=== PATIENT | male | born 1955 | race Two or more races ===

== ENCOUNTER 2022-08-18 10:57 | Inpatient (IN) | payer OTHER, MEDICAID ==
[~2022-08-18] VITALS: Ht 182.9 cm; Wt 80.0 kg
[2022-08-18 12:04] LABS: Basophils # (auto) 0 10 ^3/uL (0-0.2); Basophils % (auto) 0.4 % (0.0-2.0); Eosinophils # (auto) 0.2 10 ^3/uL (0-0.8); Eosinophils % (auto) 1.9 % (0.0-7.0); Hemoglobin 13.3 g/dL (13.5-17.5); Lymphocytes # (auto) 0.9 10 ^3/uL (0.4-5.4); Lymphocytes % (auto) 9.1 % (10.0-50.0); Mean Corpuscular Hemoglobin 32.4 pg (28.0-32.0); Mean Corpuscular Hgb Conc. 33.3 g/dL (32.0-36.0); Mean Corpuscular Volume 97.3 fL (80.0-100.0); Monocytes # (auto) 0.8 10 ^3/uL (0-1.3); Monocytes % (auto) 8.8 % (0.0-12.0); Neutrophils # (auto) 7.5 10 ^3/uL (1.6-8.6); Neutrophils % (auto) 79.8 % (37.0-80.0); Nucleated Red Blood Cells % 0.2 %; Red Blood Cells 4.11 10^6/uL (4.5-5.90); Red Cell Distribution Width 18.9 % (11.8-14.3); White Blood Cell 9.4 10^3/uL (4.4-10.8)
[2022-08-18 12:13] LABS: Albumin 4.1 g/dL (3.4-5.0); Calcium 9.6 mg/dL (8.5-10.1); INR 1.51 (0.9-1.15); Magnesium 2.6 mg/dL (1.6-2.6); Partial Thromboplastin Time 26.3 sec (24.6-33.4); Potassium 4.3 mmol/L (3.5-5.1)
[2022-08-18 12:17] LABS: BUN/Creatinine Ratio 49.6 (10.0-20.0); Bilirubin, Total 1.7 mg/dL (0.2-1.0); Total Protein 7.4 g/dL (6.4-8.2)
[2022-08-18] MEDS ORDERED: methylPREDNISolone SOD SUCC 125 MG/2 ML VL IV ONE (15:45)
[2022-08-18] MEDS ORDERED: IPRATROPIUM BROM 0.5 MG/2.5ML INH SOL NEB PRN (15:45)
[2022-08-18] MEDS ORDERED: ALBUTEROL SULF 2.5 MG/0.5ML(0.5%) NEB SOLN NEB PRN (15:45)
[2022-08-18 19:32] VITALS: BP 100/64
[2022-08-18] MEDS ORDERED: ATORVASTATIN 20 MG TAB PO SCH (22:00)
[2022-08-18] MEDS: methylPREDNISolone SOD SUCC 125 MG/2 ML VL IV SCH (22:18)
[2022-08-18] MEDS: BUMETANIDE 2.5mg/10ml (0.25 mg/ml) INJ IV SCH (22:19)
[2022-08-18] MEDS: ATORVASTATIN 20 MG TAB PO SCH (22:19)
[2022-08-19 05:43] LABS: Basophils # (auto) 0 10 ^3/uL (0-0.2); Eosinophils # (auto) 0 10 ^3/uL (0-0.8); Eosinophils % (auto) 0.3 % (0.0-7.0); Hematocrit 39.9 % (41.0-53.0); Hemoglobin 13.3 g/dL (13.5-17.5); Lymphocytes # (auto) 0.3 10 ^3/uL (0.4-5.4); Lymphocytes % (auto) 3.3 % (10.0-50.0); Mean Corpuscular Hemoglobin 32.3 pg (28.0-32.0); Mean Corpuscular Hgb Conc. 33.4 g/dL (32.0-36.0); Mean Corpuscular Volume 96.7 fL (80.0-100.0); Monocytes # (auto) 0.1 10 ^3/uL (0-1.3); Monocytes % (auto) 1.6 % (0.0-12.0); Neutrophils # (auto) 7.6 10 ^3/uL (1.6-8.6); Neutrophils % (auto) 94.8 % (37.0-80.0); Nucleated Red Blood Cells % 0.2 %; Red Blood Cells 4.12 10^6/uL (4.5-5.90); Red Cell Distribution Width 18.9 % (11.8-14.3)
[2022-08-19 06:05] LABS: Albumin 4.1 g/dL (3.4-5.0); Calcium 9.6 mg/dL (8.5-10.1); Potassium 4.2 mmol/L (3.5-5.1)
[2022-08-19 06:10] LABS: BUN/Creatinine Ratio 54.5 (10.0-20.0); Bilirubin, Total 2.2 mg/dL (0.2-1.0); Total Protein 7.4 g/dL (6.4-8.2)
[2022-08-19] MEDS: BUMETANIDE 2.5mg/10ml (0.25 mg/ml) INJ IV SCH ×2 (06:33→18:19)
[2022-08-19] MEDS: methylPREDNISolone SOD SUCC 125 MG/2 ML VL IV SCH ×2 (06:33→22:32)
[2022-08-19 09:00] VITALS: BP 102/68
[2022-08-19] MEDS ORDERED: ENOXAPARIN SOD 40 MG/0.4 ML SYRINGE SC SCH (10:00)
[2022-08-19 10:49] VITALS: BP 102/68
[2022-08-19] MEDS: PANTOPRAZOLE 40 MG/10 ML VIAL INJ IV SCH (10:59)
[2022-08-19] MEDS: ASPirin 81 mg TAB PO SCH (11:00)
[2022-08-19] MEDS: ENOXAPARIN SOD 40 MG/0.4 ML SYRINGE SC SCH (11:00)
[2022-08-19 13:00] VITALS: BP_SYST 103; BP_SYST 128; BP_DIAS 69; BP_DIAS 92
[2022-08-19 17:00] VITALS: BP 113/69
[2022-08-19] MEDS: ALBUTEROL SULF 2.5 MG/0.5ML(0.5%) NEB SOLN NEB SCH (17:45)
[2022-08-19] MEDS: IPRATROPIUM BROM 0.5 MG/2.5ML INH SOL NEB SCH (17:45)
[2022-08-19] MEDS: BUDESONIDE (INHALATION) 0.5 MG/2 ML NEB NEB SCH (17:45)
[2022-08-19] MEDS ORDERED: ASPI-543 PO (17:54)
[2022-08-19] MEDS ORDERED: FERR1TAB17 PO (17:54)
[2022-08-19] MEDS ORDERED: COLCPOW2 PO (18:01)
[2022-08-19] MEDS ORDERED: SPIR25TA8 PO (18:01)
[2022-08-19] MEDS ORDERED: METO2.5T PO (18:01)
[2022-08-19] MEDS ORDERED: SACU1TAB PO (18:01)
[2022-08-19] MEDS ORDERED: ATOR20TA PO (18:01)
[2022-08-19] MEDS ORDERED: MIDO2.5T3 PO (18:01)
[2022-08-19] MEDS ORDERED: PANT40TA2 PO (18:01)
[2022-08-19] MEDS ORDERED: BUME0.5T4 PO (18:01)
[2022-08-19 19:10] LABS: Urine Bacteria FEW /hpf (None Seen); Urine Blood 3+ /uL (Negative); Urine Hyaline Cast MANY /lpf (0 - 2); Urine Mucus FEW (None Seen); Urine Specific Gravity 1.014 (1.001-1.035); Urine WBC 81 /hpf (0 - 3)
[2022-08-19 19:30] LABS: Protein, Urine 44.4 mg/dL (0.0-11.9)
[2022-08-19 22:00] VITALS: BP 103/65
[2022-08-19] MEDS: ATORVASTATIN 20 MG TAB PO SCH (22:32)
[2022-08-19] MEDS: HYDROcodone-ACET 5/325MG TAB PO PRN (22:33)
[2022-08-20 05:00] VITALS: BP 102/63
[2022-08-20] MEDS: BUDESONIDE (INHALATION) 0.5 MG/2 ML NEB NEB SCH (06:24)
[2022-08-20] MEDS: ALBUTEROL SULF 2.5 MG/0.5ML(0.5%) NEB SOLN NEB SCH ×2 (06:24→12:34)
[2022-08-20] MEDS: IPRATROPIUM BROM 0.5 MG/2.5ML INH SOL NEB SCH ×2 (06:24→12:34)
[2022-08-20] MEDS: BUMETANIDE 2.5mg/10ml (0.25 mg/ml) INJ IV SCH ×2 (06:39→18:13)
[2022-08-20] MEDS: HYDROcodone-ACET 5/325MG TAB PO PRN ×2 (06:40→21:03)
[2022-08-20 08:17] LABS: Basophils # (auto) 0.1 10 ^3/uL (0-0.2); Eosinophils # (auto) 0 10 ^3/uL (0-0.8); Hematocrit 35.5 % (41.0-53.0); Hemoglobin 12.5 g/dL (13.5-17.5); Lymphocytes # (auto) 0.2 10 ^3/uL (0.4-5.4); Lymphocytes % (auto) 3.6 % (10.0-50.0); Mean Corpuscular Hemoglobin 33.3 pg (28.0-32.0); Mean Corpuscular Hgb Conc. 35.1 g/dL (32.0-36.0); Monocytes # (auto) 0.1 10 ^3/uL (0-1.3); Monocytes % (auto) 0.9 % (0.0-12.0); Neutrophils # (auto) 5.6 10 ^3/uL (1.6-8.6); Neutrophils % (auto) 94.5 % (37.0-80.0); Nucleated Red Blood Cells % 0.1 %; Red Blood Cells 3.74 10^6/uL (4.5-5.90); Red Cell Distribution Width 18.8 % (11.8-14.3); White Blood Cell 5.9 10^3/uL (4.4-10.8)
[2022-08-20 08:52] LABS: Albumin 3.5 g/dL (3.4-5.0); Calcium 8.9 mg/dL (8.5-10.1); Potassium 3.7 mmol/L (3.5-5.1)
[2022-08-20 08:56] LABS: BUN/Creatinine Ratio 51.7 (10.0-20.0); Bilirubin, Total 2.1 mg/dL (0.2-1.0); Magnesium 2.4 mg/dL (1.6-2.6); Total Protein 6.7 g/dL (6.4-8.2)
[2022-08-20 09:08] VITALS: BP 88/63
[2022-08-20] MEDS ORDERED: metOLazone 5 MG TAB PO SCH (10:00)
[2022-08-20] MEDS ORDERED: cefTRIAXone 1GM/50ML D5W 50 ML IV ONE ×2 (10:21→10:30)
[2022-08-20] MEDS: PANTOPRAZOLE 40 MG/10 ML VIAL INJ IV SCH (10:23)
[2022-08-20] MEDS: ASPirin 81 mg TAB PO SCH (10:24)
[2022-08-20] MEDS: ENOXAPARIN SOD 40 MG/0.4 ML SYRINGE SC SCH (10:24)
[2022-08-20] MEDS: methylPREDNISolone SOD SUCC 125 MG/2 ML VL IV SCH ×2 (10:24→21:02)
[2022-08-20] MEDS: DOPamine 1600MCG/ML D5W 250 ML IV SCH (10:45)
[2022-08-20 13:00] VITALS: BP 92/63
[2022-08-20 17:00] VITALS: BP 98/62
[2022-08-20] MEDS: AMIODARONE HCL 200 MG TAB PO SCH (21:02)
[2022-08-20] MEDS: ATORVASTATIN 20 MG TAB PO SCH (21:02)
[2022-08-20 22:00] VITALS: BP 96/62
[2022-08-21 05:00] VITALS: BP 110/65
[2022-08-21 05:39] LABS: Basophils # (auto) 0.1 10 ^3/uL (0-0.2); Basophils % (auto) 1.1 % (0.0-2.0); Eosinophils # (auto) 0 10 ^3/uL (0-0.8); Eosinophils % (auto) 0.7 % (0.0-7.0); Hematocrit 36.9 % (41.0-53.0); Hemoglobin 12.8 g/dL (13.5-17.5); Lymphocytes # (auto) 0.1 10 ^3/uL (0.4-5.4); Lymphocytes % (auto) 1.9 % (10.0-50.0); Mean Corpuscular Hgb Conc. 34.7 g/dL (32.0-36.0); Mean Corpuscular Volume 95.1 fL (80.0-100.0); Monocytes # (auto) 0.1 10 ^3/uL (0-1.3); Monocytes % (auto) 1.5 % (0.0-12.0); Neutrophils # (auto) 6.7 10 ^3/uL (1.6-8.6); Neutrophils % (auto) 94.8 % (37.0-80.0); Nucleated Red Blood Cells % 0.1 %; Red Blood Cells 3.88 10^6/uL (4.5-5.90); Red Cell Distribution Width 18.9 % (11.8-14.3); White Blood Cell 7.1 10^3/uL (4.4-10.8)
[2022-08-21 05:50] LABS: Calcium 8.6 mg/dL (8.5-10.1); Potassium 3.4 mmol/L (3.5-5.1)
[2022-08-21] MEDS: BUMETANIDE 2.5mg/10ml (0.25 mg/ml) INJ IV SCH (05:58)
[2022-08-21 09:00] VITALS: BP 110/71
[2022-08-21] MEDS ORDERED: cefTRIAXone 1GM/50ML D5W 50 ML IV SCH (09:00)
[2022-08-21] MEDS: PANTOPRAZOLE 40 MG/10 ML VIAL INJ IV SCH (09:40)
[2022-08-21] MEDS: ENOXAPARIN SOD 40 MG/0.4 ML SYRINGE SC SCH (09:41)
[2022-08-21] MEDS: ASPirin 81 mg TAB PO SCH (09:41)
[2022-08-21] MEDS: AMIODARONE HCL 200 MG TAB PO SCH (09:41)
[2022-08-21] MEDS: methylPREDNISolone SOD SUCC 125 MG/2 ML VL IV SCH (09:41)
[2022-08-21] MEDS: DOPamine 1600MCG/ML D5W 250 ML IV SCH (10:45)
[2022-08-21 12:40] LABS: Hepatitis C Antibody Negative (Negative)
[2022-08-21 13:00] VITALS: BP 102/69
[2022-08-21] MEDS: HYDROcodone-ACET 5/325MG TAB PO PRN (14:36)
[2022-08-21] MEDS ORDERED: NITR-87 PO (16:38)
[2022-08-21] MEDS ORDERED: AMIO200T33 PO (16:39)
[2022-08-21 17:00] VITALS: BP 101/68
[2022-08-21 19:29] VITALS: BP 102/69
[2022-08-22] MEDS ORDERED: FUROSEMIDE 40 MG/4 ML VIAL IV SCH (10:00)
== END 2022-08-21 20:52 | disposition home or self-care (01) | DRG 291 ==
LOC: ER 10:57 → TELE 16:05 → TELE-EAST 08-19 09:19
PROVIDERS: ADMIT Nurse Practitioner Family; ATTEND Nurse Practitioner Acute Care
DX: I13.0 Hypertensive heart and chronic kidney disease with heart failure and stage 1 through stage 4 chronic kidney disease, or unspecified chronic kidney disease (principal); I50.43 Acute on chronic combined systolic (congestive) and diastolic (congestive) heart failure; N17.0 Acute kidney failure with tubular necrosis; J96.21 Acute and chronic respiratory failure with hypoxia; E87.1 Hypo-osmolality and hyponatremia; J44.1 Chronic obstructive pulmonary disease with (acute) exacerbation; I47.20 Ventricular tachycardia, unspecified; N39.0 Urinary tract infection, site not specified; N18.4 Chronic kidney disease, stage 4 (severe); I42.0 Dilated cardiomyopathy; I27.20 Pulmonary hypertension, unspecified; M06.9 Rheumatoid arthritis, unspecified; M10.9 Gout, unspecified; D64.9 Anemia, unspecified; Z79.51 Long term (current) use of inhaled steroids; Z79.899 Other long term (current) drug therapy; Z82.0 Family history of epilepsy and other diseases of the nervous system; Z87.891 Personal history of nicotine dependence; Z95.810 Presence of automatic (implantable) cardiac defibrillator
CPT/HCPCS: 36415; 36600; 71045; 76775; 80048; 80053; 81001; 82570; 82805; 83735; 83880; 83970; 84100; 84156; 84300; 84484; 84550; 85025; 85379; 85610; 85730; 86803; 87340; 93005; 93306; 94640; 96374; 99291; C9113; G0378; J0696